=== PATIENT | male | born 1965 | race Caucasian/White ===

== ENCOUNTER 2021-07-05 12:43 | Emergency (ER) | payer OTHER, SELFPAY ==
--- NOTE | ~2021-07-05 | XR_ITS ---
EXAMINATION: XR chest 2V DATE: 07/05/2021 14:08 INDICATION: Productive cough and wheezing TECHNIQUE: AP and lateral views of the chest are obtained. COMPARISON: None available FINDINGS: The lungs are free of acute opacities. There is no pleural effusion or pneumothorax. The ca rdiomediastinal silhouette is normal. There is moderate thoracic spondylosis. IMPRESSION: 1. No acute cardiopulmonary abnormality. Reviewed, dictated and finalized at location B.
[2021-07-05 12:54] VITALS: BP 111/93; PULSE 91; RESP 16; TEMP 36.3; O2SAT 98
--- NOTE | 2021-07-05 13:49 | ED.URI ---
HPI - URI/Sore Throat General Chief Complaint: Upper Respiratory Infection Stated Complaint: sore throat Time Seen by Provider: 07/05/21 13:30 Source: patient, RN notes reviewed and old records reviewed Mode of arrival: ambulatory Limitations: no limitations History of Present Illness HPI Narrative: 55 year old male presents to [facility] care with complaints of sore throat since and now he has cough which is worse at night. He states that he feels like he has bronchitis, he has noted some wheezing at times. He states that he has an inhaler at home and he has used it which did help the wheezing. Patient denies any known fevers, chills or sweat, denies any body aches has had COVId vaccinations. MD elicited complaint: cough and sore throat Pertinent past history: other (bronchitis) Related Data Allergies Allergy/AdvReac Type Severity Reaction Status Date / Time No Known Allergies Allergy Verified 07/05/21 13:42 Review of Systems Review of Systems: CONSTITUTIONAL: Denies fever, chills, or sweats. EYES: Denies visual changes, redness, or discharge. ENT: Positive rhinorrhea, congestion, sore throat, no otalgia. CARDIOVASCULAR: Denies chest pain, palpitations, or edema. RESPIRATORY: Positive for cough no acute dyspnea. GASTROINTESTINAL: Denies abdominal pain, nausea, vomiting, or diarrhea. GENITOURINARY: Denies dysuria or hematuria. SKIN: Denies rash or itching. MUSCULOSKELETAL: Denies back pain, joint pain, or myalgia. NEUROLOGIC: Denies headache, numbness, or weakness. PSYCHIATRIC: Denies anxiety or depression. All systems reviewed & are unremarkable except as noted in HPI and below [facility] Past Medical History Medical History (Updated 07/06/21 @ 00:01 by Garry Kaye) On truck terminal manager drug therapy MARIYA (obstructive sleep apnea) Umbilical hernia with obstruction, without gangrene Umbilical hernia without obstruction and without gangrene Ventral hernia without obstruction or gangrene Surgical History Surgical History (Updated 07/10/21 @ 15:31 by Lillie Garnica NP) Hx of hernia repair Family History Family History Father Family history of diabetes mellitus in first degree relative Patient's father is , Onset Age: 82 Diabetes mellitus Mother Family history of diabetes mellitus in first degree relative Patient's mother is , Onset Age: 79 Diabetes mellitus Family history of arthritis Sibling Diabetes mellitus Mother , Age 79 from [place] Diabetes mellitus Father , Age 88 Diabetes mellitus Other Family history of hearing loss Social History Social History Smoking status: Never smoker Alcohol intake: current Drinks per week: 2 Alcohol use details: 2 beers weekly Substance use: never Gender identity (if verbalized by the patient): Male Comments At time of signature, agree with nursing past medical, surgical, social and family history. There is no relevant family history pertinent to the presenting complaint Exam Narrative: GENERAL: Well-appearing, well-nourished, and in no acute distress. HEAD: Normocephalic, atraumatic. EYES: PERRLA and EOMI. ENT: Nares red with clear rhinorrhea no epistaxis. Mucous membranes moist.TM's normal with good light reflex, throat red with no lesions or exudates, no tonsil enlargement post nasal drainage noted NECK: Supple.no lymphadenopathy CHEST: Clear to auscultation. No respiratory distress.no wheezing noted, harsh cough which is productive at times. SAO2 98% on room air HEART: Regular rate and rhythm. No murmur heard. Normal peripheral pulses. ABDOMEN: Soft, nontender, nondistended, normal active bowel sounds. EXTREMITIES: Normal range of motion. No edema. SKIN: Warm, dry, no rash. NEURO: No focal deficits. Alert and oriented x3. Course Vital Signs Vital signs: Vital Sign
== END 2021-07-05 14:45 | disposition home or self-care (01) ==
PROVIDERS: Emergency Provider Registered Nurse
DX: R05 Cough (principal); J06.9 Acute upper respiratory infection, unspecified; Z20.822 Contact with and (suspected) exposure to COVID-19; G47.33 Obstructive sleep apnea (adult) (pediatric)
CPT/HCPCS: 71046; 87081; 87426; 87880; 99213; C9803; G0463

== ENCOUNTER 2022-04-10 16:44 | Emergency (ER) | payer OTHER, SELFPAY ==
[2022-04-10 16:50] VITALS: BP 126/72; PULSE 73; RESP 16; TEMP 36; O2SAT 98
--- NOTE | 2022-04-10 16:58 | ED.SKABFB ---
HPI - Skin/Abscess/Foreign Bdy General Chief complaint: Skin/Abscess/Foreign Body Stated complaint: rash Time Seen by Provider: 04/10/22 16:58 Source: patient and RN notes reviewed Mode of arrival: ambulatory Limitations: no limitations History of Present Illness HPI narrative: 56-year-old male presents to the [facility] with complaints of rash to his back for 2 days, started on his bottom lip today. Has taken Benadryl. No lip or tongue swelling. Denies any allergies. Denies any chest pain or shortness of breath Denies any new creams, ointments, lotions, detergents. Denies any new foods. Describes them as being very itchy MD complaint: rash Related Data Home Medications Medication Instructions Recorded Confirmed testosterone 20.25 mg/1.25 gram See Rx Instructions .Route .COMPLEX 01/16/22 (1.62 %) transdermal gel pump Allergies Allergy/AdvReac Type Severity Reaction Status Date / Time No Known Allergies Allergy Verified 04/10/22 16:58 Review of Systems Review of Systems: All systems reviewed & are unremarkable except as noted in HPI and below Constitutional: Constitutional: Reports no additional constitutional complaints, Denies chills and Denies fever(s) Eyes: Eyes: Reports no additional eye complaints ENT: Reports system reviewed and no additional complaints, except as documented Cardiovascular: Cardiovascular: Reports no additional cardiovascular complaints Respiratory: Respiratory: Reports no additional respiratory complaints Gastrointestinal: Gastrointestinal: Reports no additional gastrointestinal complaints Musculoskeletal: Musculoskeletal: Reports no additional musculoskeletal complaints Integumentary/Breasts: Skin/Breast: Reports as per HPI and Reports rash Neurologic: Reports system reviewed and no additional complaints, except as documented Psychiatric: Psychiatric: Reports no additional psychiatric complaints Allergic/Immunologic: Allergic/Immunologic: Reports no additional allergic/immunologic complaints [facility] Past Medical History Medical History Bronchitis Chicken pox On continuous churn buttermaker drug therapy MARIYA (obstructive sleep apnea) Umbilical hernia with obstruction, without gangrene Umbilical hernia without obstruction and without gangrene Ventral hernia without obstruction or gangrene Surgical History Surgical History Hx of hernia repair (~2018) Family History Family History Father Family history of diabetes mellitus in first degree relative Patient's father is , Onset Age: 82 Diabetes mellitus Mother Family history of diabetes mellitus in first degree relative Patient's mother is , Onset Age: 79 Diabetes mellitus Family history of arthritis Sibling Diabetes mellitus Mother , Age 79 from [place] Diabetes mellitus Father , Age 88 Diabetes mellitus Other Family history of hearing loss Social History Social History Social History: Patient drinks 1-2 cups of coffee daily. 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 There is no relevant family history pertinent to the patient complaint. Exam Const: General: healthy a
== END 2022-04-10 17:08 | disposition home or self-care (01) ==
PROVIDERS: Emergency Provider Nurse Practitioner; PCP Emergency Medicine
DX: L30.9 Dermatitis, unspecified (principal); G47.33 Obstructive sleep apnea (adult) (pediatric)
CPT/HCPCS: 99213; G0463

== ENCOUNTER 2022-12-21 02:42 | Day surgery (SDC) | payer OTHER, SELFPAY ==
[2022-12-21 06:40] VITALS: BP 140/93; PULSE 84; RESP 20; TEMP 36.3; O2SAT 95; BMI 38.2
[2022-12-21] MEDS: LACTATED RINGERS 1,000 ML 150 ML IV CONT (07:03)
--- NOTE | 2022-12-21 07:44 | PM.HPGS ---
History of Present Illness History of Present Illness Consent: Risks, benefits, and alternatives have been discussed and questions answered. Patient agrees to proceed with procedure. Chief complaint: hx colon polyps Narrative: Tyrone Guerra is a 57 year old male Presents for colonoscopy. Patient was found to have adenomatous colon polyps previously. Patient presents today for neoplasia screening colonoscopy. Patient reports his current weight appetite and bowel movements are normal. Patient denies abdominal pain. He has had no bleeding. Family history is noncontributory. Review of Systems Review of Systems: Review of systems noncontributory. [facility] Past Medical History Medical History Bronchitis Chicken pox On fdc drug therapy MARIYA (obstructive sleep apnea) Umbilical hernia with obstruction, without gangrene Umbilical hernia without obstruction and without gangrene Ventral hernia without obstruction or gangrene Surgical History Surgical History Hx of hernia repair (~2018) Family History Family History Father Family history of diabetes mellitus in first degree relative Patient's father is , Onset Age: 82 Diabetes mellitus Mother Family history of diabetes mellitus in first degree relative Patient's mother is , Onset Age: 79 Diabetes mellitus Family history of arthritis Sibling Diabetes mellitus Mother , Age 79 from [place] Diabetes mellitus Father , Age 88 Diabetes mellitus Other Family history of hearing loss Social History Social History Social History: Patient drinks 1-2 cups of coffee daily. 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[employer] Gender identity (if verbalized by the patient): Male Sexual Orientation (if Verbalized by the Patient): Straight or Heterosexual Spiritual care concerns: No Meds Home Medications and Allergies Home Medications Medication Instructions Recorded Confirmed Type testosterone See Rx Instructions .Route .COMPLEX 01/16/22 12/06/22 History rosuvastatin 20 mg tablet 20 mg PO DAILY #90 tabs 07/16/22 12/06/22 Rx lisinopril 20 mg tablet 20 mg PO DAILY #90 tabs 09/18/22 12/06/22 Rx Allergies Allergy/AdvReac Type Severity Reaction Status Date / Time No Known Allergies Allergy Verified 12/21/22 06:48 Vital Signs Vital Signs - 24 hr 12/21/22 06:40 Temperature 97.3 F L Pulse Rate 84 Respiratory Rate 20 Blood Pressure 140/93 H Pulse Oximetry 95 Oxygen Delivery Room Air Exam Narrative: Physical exam reveals patient to be alert. Vital signs stable. HEENT exam is unremarkable. Patient is anicteric. Lungs are clear to auscultation and percussion. Heart is without murmur or extra sounds. Abdomen bowel sounds are present soft nontender with no organomegaly. Digital external rectal exam is normal. Assessment and Plan Assessment and plan (1) History of colon polyps: Code(s): Z86.010 - Personal history of colonic polyps Status: Acute Assessment and Plan: Patient presents for screening colonoscopy. He does have a prior history of colon polyps. Further recommendations may be given after endoscopy.
--- NOTE | 2022-12-21 07:46 | WPDANESEPPF ---
Anes - Initial Pre Proc Eval Procedure: Operation Date: 12/21/22 08:00 Proposed Procedures p Screening Colonoscopy - Jorge Dow MD Date/Time: 12/21/22 07:46 Surgeon: Jorge Dow MD Pre Op Diagnosis: hx colon polyps Patient Data Age: 57 Gender: M Height: 1.73 m Weight: 114.2 kg Last Vital Signs Temp 97.3 F L 12/21/22 06:40 Pulse 84 12/21/22 06:40 Resp 20 12/21/22 06:40 BP 140/93 H 12/21/22 06:40 Pulse Ox 95 12/21/22 06:40 O2 Del Method Room Air 12/21/22 06:40 Allergies Allergy/AdvReac Type Severity Reaction Status Date / Time No Known Allergies Allergy Verified 12/21/22 06:48 Home Medications Medication Instructions Recorded Confirmed Type testosterone See Rx Instructions .Route .COMPLEX 01/16/22 12/06/22 History rosuvastatin 20 mg tablet 20 mg PO DAILY #90 tabs 07/16/22 12/06/22 Rx lisinopril 20 mg tablet 20 mg PO DAILY #90 tabs 09/18/22 12/06/22 Rx Patient hx anesthesia problems: none Family hx anesthesia problems: none Results Review: All pre-operative results and documents have been reviewed as part of the pre-operative evaluation. [facility] Past Medical History Medical History Bronchitis Chicken pox On senior living drug therapy MARIYA (obstructive sleep apnea) Umbilical hernia with obstruction, without gangrene Umbilical hernia without obstruction and without gangrene Ventral hernia without obstruction or gangrene Surgical History Surgical History Hx of hernia repair (~2018) Family History Family History Father Family history of diabetes mellitus in first degree relative Patient's father is , Onset Age: 82 Diabetes mellitus Mother Family history of diabetes mellitus in first degree relative Patient's mother is , Onset Age: 79 Diabetes mellitus Family history of arthritis Sibling Diabetes mellitus Mother , Age 79 from [place] Diabetes mellitus Father , Age 88 Diabetes mellitus Other Family history of hearing loss Social History Social History Social History: Patient drinks 1-2 cups of coffee daily. 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[employer] Gender identity (if verbalized by the patient): Male Sexual Orientation (if Verbalized by the Patient): Straight or Heterosexual Spiritual care concerns: No Anes - Eval Final PreProcedure Day of Procedure 12/21/22 07:46 Patient weight: obese Heart: regular rate and rhythm Lungs: clear to auscultation Airway: Mallampati scale class II Neurological: alert and oriented Last oral intake: >/= 8 hours ASA classification: III Emergent: no Anesthetic plan: proceed Anesthesia type and monitoring: general GIVS and standard monitoring Results Review: All pre-operative results and documents have been reviewed as part of the pre-operative evaluation. Informed Consent: The patient's anesthetic plan and its attendant risks and benefits were discussed with the patient/family/POA. Questions were solicited and answers provided to the satisfaction of the patient/family/POA.
[2022-12-21 08:10] VITALS: BP 112/57; PULSE 94; RESP 20; O2SAT 95
[2022-12-21 08:20] VITALS: BP 105/61; PULSE 81; RESP 20; O2SAT 95
[2022-12-21 08:30] VITALS: BP 119/68; PULSE 74; RESP 25; O2SAT 95
== END 2022-12-21 08:41 | disposition home or self-care (01) ==
PROVIDERS: PCP Emergency Medicine; Visit Provider Internal Medicine Gastroenterology
PROC: 0DJD8ZZ Inspection of Lower Intestinal Tract, Via Natural or Artificial Opening Endoscopic (ICD-10-PCS; CPT 45378; principal; 2022-12-21 08:00)
DX: Z12.11 Encounter for screening for malignant neoplasm of colon (principal); D12.2 Benign neoplasm of ascending colon; G47.33 Obstructive sleep apnea (adult) (pediatric); E66.9 Obesity, unspecified; Z68.38 Body mass index [BMI] 38.0-38.9, adult
CPT/HCPCS: 45385; 88305; J2704; J7120